=== PATIENT | female | born 1965 | race Hispanic/Latino ===

== ENCOUNTER 2018-07-16 12:37 | Emergency (ER) | payer OTHER ==
[2018-07-16 13:27] LABS: Absolute Lymphocytes (CBC) 1.6 K/uL (0.7-4.9); Absolute Monocytes 0.4 K/uL (0.1-1.3); Absolute Neutrophil 5.5 K/uL (1.8-8.0); Basophils % 0.6 % (0-1.3); Eosinophils % 1.8 % (0-4.4); Hematocrit 38.4 % (36.0-45.0); Lymphocytes % 20.4 % (15.3-44.8); MPV 9.5 fL (7.6-11.3); Monocytes % 5.2 % (3.3-12.3); RBC Red Blood Cell Count 4.54 M/uL (3.86-4.86)
[2018-07-16 13:45] LABS: Protime INR 1.03
[2018-07-16 13:49] LABS: ALT/SGPT 20 U/L (12-78); AST/SGOT 15 U/L (15-37); Albumin 3.7 g/dL (3.4-5.0); Alkaline Phosphatase 81 U/L (45-117); BUN Blood Urea Nitrogen 19 mg/dL (7-18); Bicarbonate 26 mmol/L (21-32); Bilirubin Direct 0.2 mg/dL (0-0.2); Bilirubin Total 0.6 mg/dL (0.2-1.0); Glucose Level 84 mg/dL (74-106); Magnesium 2.1 mg/dL (1.8-2.4); NT PRO-BNP 59 pg/mL (<125); Potassium 3.4 mmol/L (3.5-5.1); Protein, Total 7.6 g/dL (6.4-8.2); Sodium Level 139 mmol/L (136-145); Troponin (Emerg Dept Use Only) < 0.02 ng/mL (0.0-0.045)
--- NOTE | 2018-07-16 14:34 | EDPHYS ---
Physician Documentation [facility] Name: Ken Vargas Age: 52 yrs Sex: Female : 1965 Arrival Date: 07/16/2018 Time: 12:41 Bed 6 Private MD: Terrance Shah ED Physician Mode Prescott HPI: 07/16 13:20 This 52 yrs old Female presents to ER via Ambulatory with complaints of Chest pm1 Pain. 13:20 The patient or guardian reports chest pain that is located primarily in the mid-sternal pm1 area. Onset: last night, at 20:00. The pain does not radiate. Associated signs and symptoms: The patient has no apparent associated signs or symptoms, Pertinent negatives: abdominal pain, cough, diaphoresis, dizziness, headache, lightheadedness, nausea, palpitations, shortness of breath, vomiting. The chest pain is described as burning. Duration: The patient or guardian reports a single episode, that is still ongoing. Modifying factors: the symptoms are aggravated by deep breath, palpation of area. Severity of pain: in the emergency department the pain has improved. The patient has not experienced similar symptoms in the past. The patient has not recently seen a physician. 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 - Social history:: Smoking status: Patient/guardian denies using tobacco. - Ebola Screening: : Patient negative for fever greater than or equal to 101.5 degrees Fahrenheit, and additional compatible Ebola Virus Disease symptoms Patient denies exposure to infectious person Patient denies travel to an Ebola-affected area in the 21 days before illness onset No symptoms or risks identified at this time. ROS: 13:20 Constitutional: Negative for fever, chills, and weight loss, Eyes: Negative for injury, pm1 pain, redness, and discharge, ENT: Negative for injury, pain, and discharge, Neck: Negative for injury, pain, and swelling. 13:20 Respiratory: Negative for shortness of breath, cough, wheezing, and pleuritic chest pain, Abdomen/GI: Negative for abdominal pain, nausea, vomiting, diarrhea, and constipation, Back: Negative for injury and pain, : Negative for injury, bleeding, discharge, and swelling, MS/Extremity: Negative for injury and deformity, Skin: Negative for injury, rash, and discoloration, Neuro: Negative for headache, weakness, numbness, tingling, and seizure. 13:20 Cardiovascular: Positive for chest pain, Negative for edema, orthopnea, palpitations. Exam: 13:20 Constitutional: This is a well developed, well nourished patient who is awake, alert, pm1 and in no acute distress. Head/Face: Normocephalic, atraumatic. Eyes: Pupils equal round and reactive to light, extra-ocular motions intact. Lids and lashes normal. Conjunctiva and sclera are non-icteric and not injected. Cornea within normal limits. Periorbital areas with no swelling, redness, or edema. ENT: Nares patent. No nasal discharge, no septal abnormalities noted. Tympanic membranes are normal and external auditory canals are clear. Oropharynx with no redness, swelling, or masses, exudates, or evidence of obstruction, uvula midline. Mucous membranes moist. Neck: Trachea midline, no thyromegaly or masses palpated, and no cervical lymphadenopathy. Supple, full range of motion without nuchal rigidity, or vertebral point tenderness. No Meningismus. Chest/axilla: Normal chest wall appearance and motion. Nontender with no deformity. No lesions are appreciated. 13:20 Respiratory: Lungs have equal breath sounds bilaterally, clear to auscultation and percussion. No rales, rhonchi or wheezes noted. No increased work of breathing, no retractions or nasal flaring. Abdomen/GI: Soft, non-tender, with normal bowel sounds. No distension or tympany. No guarding or rebound. No evidence of tenderness throughout. Back: No spinal tenderness. No costovertebral tenderness. Full range of motion. Skin: Warm, dry with normal turgor. Normal color with no rashes, no lesions, and no evidence of cellulitis. MS/ Extremity: Pulses equal, no cyanosis. Neurovascular intact. Full, normal range of motion. 13:20 Cardiovascular: Rate: normal, Rhythm: regular, Pulses: no pulse deficits are appreciated, Heart sounds: normal, Edema: is not appreciated, JVD: is not appreciated. 13:20 Neuro: Orientation: is normal, Motor: is normal, moves all fours, Sensation: is normal, no obvious gross deficits. Vital Signs: 12:51 BP 157 / 80; Pulse 82; Resp 20; Temp 97.8; Pulse Ox 100% on R/A; Weight 136.08 kg; aj Height 5 ft. 7 in. (170.18 cm); 14:00 BP 133 / 75; Pulse 64; Resp 14; Pulse Ox 100% ; bp 12:51 Body Mass Index 46.99 (136.08 kg, 170.18 cm) aj MDM: 12:56 Patient medically screened. pm1 13:36 Data reviewed: vital signs. pm1 14:32 ED course: Patient with 0/10 pain. pm1 14:32 Counseling: I had a detailed discussion with the patient and/or guardian regarding: the pm1 historical points, exam findings, and any diagnostic results supporting the discharge/admit diagnosis, lab results, radiology results, the need for outpatient follow up, to return to the emergency department if symptoms worsen or persist or if there are any questions or concerns that arise at home. 14:32 SUMMER Risk Score: TOTAL SCORE = 0. pm1 07/16 12:58 Order name: Basic Metabolic Panel pm1 07/16 12:58 Order name: CBC with Diff pm07/16 12:58 Order name: LFT's pm07/16 12:58 Order name: Magnesium pm1 07/16 12:58 Order name: NT PRO-BNP pm07/16 12:58 Order name: PT-INR pm07/16 12:58 Order name: Troponin (emerg Dept Use Only) pm07/16 13:50 Order name: Basic Metabolic Panel; Complete Time: 14:14 EDMS 07/16 13:50 Order name: Liver (Hepatic) Function; Complete Time: 14:14 EDMS 07/16 13:50 Order name: Troponin (Emerg Dept Use Only); Complete Time: 14:14 EDMS 07/16 13:50 Order name: NT PRO-BNP; Complete Time: 14:14 EDMS 07/16 13:50 Order name: Magnesium; Complete Time: 14:14 EDMS 07/16 13:50 Order name: Protime (+INR); Complete Time: 14:14 EDMS 07/16 14:16 Order name: CBC with Automated Diff; Complete Time: 14:17 EDMS 07/16 12:58 Order name: XRAY Chest (1 view) pm1 07/16 12:58 Order name: EKG; Complete Time: 12:59 pm1 07/16 12:58 Order name: Cardiac monitoring; Complete Time: 14:14 pm1 07/16 12:58 Order name: EKG - Nurse/Tech; Complete Time: 13:03 pm1 07/16 12:58 Order name: IV Saline Lock; Complete Time: 13:26 pm1 07/16 12:58 Order name: Labs collected and sent; Complete Time: 13:26 pm1 07/16 12:58 Order name: O2 Per Protocol; Complete Time: 13:04 pm1 07/16 12:58 Order name: O2 Sat Monitoring; Complete Time: 13:04 pm1 07/16 14:44 Order name: RAD; Complete Time: 15:13 EDMS Administered Medications: No medications were administered Disposition: 07/16/18 14:33 Discharged to Home. Impression: Chest pain, unspecified. - Condition is Stable. - Discharge Instructions: Nonspecific Chest Pain, Stress and Stress Management. - Medication Reconciliation Form, Thank You Letter form. - Follow up: Emergency Department; When: As needed; Reason: Worsening of condition. Follow up: Private Physician; When: 2 - 3 days; Reason: Recheck today's complaints, Continuance of care, Re-evaluation by your physician. - Problem is new. - Symptoms have improved. Addendum: 07/18/2018 03:34 Co-signature as Attending Physician, Mode Prescott MD I agree with the assessment and t w4 plan of care. Signatures: Dispatcher [employer] EDAbbie Weathers RN RN Aneudy Carrillo, BRICE [employer] FACER pm1 Jj Alberto RN RN Mode Lazar MD MD tw4 Corrections: (The following items were deleted from the chart) 07/16 14:50 14:33 07/16/2018 14:33 Discharged to Home. Impression: Chest pain, unspecified. bp Condition is Stable. Forms are Medication Reconciliation Form, Thank You Letter, Antibiotic Education, Prescription Opioid Use. Follow up: Emergency Department; When: As needed; Reason: Worsening of condition. Follow up: Private Physician; When: 2 - 3 days; Reason: Recheck today's complaints, Continuance of care, Re-evaluation by your physician. Problem is new. Symptoms have improved. pm1
--- NOTE | 2018-07-16 14:34 | ER ---
Nurse's Notes [facility] Name: Ken Vargas Age: 52 yrs Sex: Female : 1965 Arrival Date: 07/16/2018 Time: 12:41 Bed 6 Private MD: Terrance Shah Diagnosis: Chest pain, unspecified Presentation: 07/16 12:50 Presenting complaint: Patient states: Sternal chest pain that started last night and is aj worse when deep breathing. Denies cough. Transition of care: patient was not received from another setting of care. Onset of symptoms was July 15, 2018. Risk Assessment: Do you want to hurt yourself or someone else? Patient reports no desire to harm self or others. Initial Sepsis Screen: Does the patient meet any 2 criteria? No. Patient's initial sepsis screen is negative. Does the patient have a suspected source of infection? No. Patient's initial sepsis screen is negative. Care prior to arrival: None. 12:50 Method Of Arrival: Ambulatory aj 12:50 Acuity: FRANCES 3 aj Triage Assessment: 12:51 General: Appears in no apparent distress. uncomfortable, obese, Behavior is calm, aj cooperative, appropriate for age. Pain: Complains of pain in mid-sternal area. Neuro: Level of Consciousness is awake, alert, obeys commands, Oriented to person, place, time, situation, Appropriate for age. Cardiovascular: Reports chest pain, Capillary refill < 3 seconds in bilateral fingers Patient's skin is warm and dry. Respiratory: Reports pain with respiration Airway is patent Respiratory effort is even, unlabored, Respiratory pattern is regular, symmetrical. Derm: Skin is intact, is healthy with good turgor, Skin is pink, warm \T\ dry. normal. 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 - Social history:: Smoking status: Patient/guardian denies using tobacco. - Ebola Screening: : Patient negative for fever greater than or equal to 101.5 degrees Fahrenheit, and additional compatible Ebola Virus Disease symptoms Patient denies exposure to infectious person Patient denies travel to an Ebola-affected area in the 21 days before illness onset No symptoms or risks identified at this time. Screenin:56 Abuse screen: Denies threats or abuse. Denies injuries from another. Nutritional bp screening: No deficits noted. Tuberculosis screening: No symptoms or risk factors identified. Fall Risk None identified. Assessment: 12:56 General: Appears in no apparent distress. comfortable, obese, Behavior is cooperative, bp appropriate for age, anxious. Pain: Complains of pain in chest and mid-sternal area Pain does not radiate. Pain began 1 day ago. Aggravated by RESPIRATION. Neuro: Level of Consciousness is awake, alert, obeys commands, confused, Oriented to person, place, time, situation, Appropriate for age. Cardiovascular: No deficits noted. Respiratory: Airway is patent Respiratory effort is even, unlabored, Respiratory pattern is regular, symmetrical. GI: No signs and/or symptoms were reported involving the gastrointestinal system. : No signs and/or symptoms were reported regarding the genitourinary system. EENT: No deficits noted. Derm: No deficits noted. Musculoskeletal: Circulation, motion, and sensation intact. Range of motion: intact in all extremities. 14:49 Reassessment: PT D/C HOME AMBULATORY, DX WITH NONCARDIAC CHEST PAIN. bp Vital Signs: 12:51 BP 157 / 80; Pulse 82; Resp 20; Temp 97.8; Pulse Ox 100% on R/A; Weight 136.08 kg; aj Height 5 ft. 7 in. (170.18 cm); 14:00 BP 133 / 75; Pulse 64; Resp 14; Pulse Ox 100% ; bp 12:51 Body Mass Index 46.99 (136.08 kg, 170.18 cm) aj ED Course: 12:41 Patient arrived in ED. mr 12:41 Terrance Shah DO is Private Physician. mr 12:50 Triage completed. aj 12:51 Arm band placed on right wrist. Patient placed in an exam room. aj 12:53 Jj Alberto, RICKI is Primary Nurse. bp 12:54 Aneudy Swanson NP is PHCP. pm1 12:54 Mode Prescott MD is Attending Physician. pm1 12:56 Patient has correct armband on for positive identification. Placed in gown. Bed in low bp position. Call light in reach. Side rails up X2. monitor worker on. Pulse ox on. NIBP on. 12:56 Patient maintains SpO2 saturation greater than 95% on room air. bp 13:00 Inserted saline lock: 20 gauge in right antecubital area, using aseptic technique. bp Blood collected. 14:49 No provider procedures requiring assistance completed. IV discontinued, intact, bp bleeding controlled, No redness/swelling at site. Pressure dressing applied. Administered Medications: No medications were administered Outcome: 14:33 Discharge ordered by MD. pm1 14:49 Discharged to home ambulatory. bp 14:49 Condition: stable 14:49 Discharge instructions given to patient, Instructed on discharge instructions, follow up and referral plans. Demonstrated understanding of instructions, follow-up care. 14:50 Patient left the ED. bp Signatures: Abbie Garrido, RN Jenifer Nguyen Patrick, BRICE RESEARCH & INSIGHTS EXECUTIVE pm1 Jj Alberto, RICKI RN bp
--- NOTE | 2018-07-16 14:42 | RAD REPORT ---
EXAM DESCRIPTION: RAD - Chest Single View - 07/16/2018 2:18 pm CLINICAL HISTORY: Chest pain COMPARISON: None. TECHNIQUE: AP portable chest image was obtained 1407 hours . FINDINGS: Lung volumes are low. No focal lung parenchymal process. Heart and vasculature are normal. No measurable pleural effusion and no pneumothorax. No acute bony abnormality seen. No acute aortic findings suspected. IMPRESSION: No acute cardiopulmonary process.
--- NOTE | 2018-07-17 11:47 | EKG ---
Test Date: 2018-07-16 Test Time: 12:59:36 Chef Passenger Vessel: LUPE MEASUREMENT RESULTS: Intervals: Rate: 71 VT: 176 QRSD: 92 QT: 370 QTc: 402 [place]: P: 35 VT: 176 QRS: -3 T: 38 INTERPRETIVE STATEMENTS: Normal sinus rhythm Nonspecific T wave abnormality Abnormal ECG No previous ECG available for comparison Electronically Signed On 07-17-18 11:43:11 MACHINE VENEER REPAIRER by Addison Paz
== END 2018-07-16 14:50 | disposition home or self-care (01) ==
LOC: ER 12:37
DX: R07.9 Chest pain, unspecified (principal); I10 Essential (primary) hypertension; Z79.82 Long term (current) use of aspirin
CPT/HCPCS: 36415; 71045; 80048; 80076; 83735; 83880; 84484; 85025; 85610; 93005